=== PATIENT | female | born 1965 | race Caucasian/White ===

== ENCOUNTER 2021-07-22 23:56 | Emergency (ER) | payer MEDICAID, OTHER ==
[~2021-07-22] VITALS: Ht 162.6 cm; Wt 56.7 kg
--- NOTE | 2021-07-23 00:09 | NUR ---
Dr. Bar at bedside for MSE.
[2021-07-23] MEDS ORDERED: BACITRACIN ZINC OINT 15 GM TUBE TOP ONE (00:15)
[2021-07-23] MEDS ORDERED: LIDOCAINE HCL 1% 20 ML VIAL TP ONE (00:15)
[2021-07-23] MEDS ORDERED: ACETAMINOPHEN 325 MG TABLET PO ONE (00:15)
[2021-07-23] MEDS ORDERED: ACETAMINOPHEN 325 MG TABLET ONE (00:20)
[2021-07-23] MEDS ORDERED: BACITRACIN ZINC OINT 15 GM TUBE ONE (00:21)
[2021-07-23] MEDS ORDERED: LIDOCAINE HCL 1% 20 ML VIAL ONE (00:21)
[2021-07-23 00:36] VITALS: BP 129/85
--- NOTE | 2021-07-23 00:36 | NUR ---
Patient discharged to home in stable condition. Written and verbal after care instructions given. Patient verbalizes understanding of instructions. Stressed follow up or return to ER for worsening s/s. Patient out of ER with steady gait, no acute signs of distress, VSS, all belongings taken.
== END 2021-07-23 00:37 | disposition home or self-care (01) ==
LOC: ER 07-23 00:03
DX: S01.81XA Laceration without foreign body of other part of head, initial encounter (principal); W01.0XXA Fall on same level from slipping, tripping and stumbling without subsequent striking against object, initial encounter; Y93.K1 Activity, walking an animal; Y92.89 Other specified places as the place of occurrence of the external cause
CPT/HCPCS: 12011; 99282; J3490; A4217; A4663

== ENCOUNTER 2021-08-18 10:15 | Emergency (ER) | payer MEDICAID ==
[~2021-08-18] VITALS: Ht 175.3 cm; Wt 56.7 kg
--- NOTE | 2021-08-18 10:34 | NUR ---
at bedside for assessment
--- NOTE | 2021-08-18 11:30 | NUR ---
Patient discharged to home in stable condition. Patient instructed to follow up. Written and verbal after care instructions given. Patient verbalizes understanding of instructions. Stressed follow up or return to ER for worsening s/s.
--- NOTE | 2021-08-18 11:45 | NUR ---
short ulner splint applied to left arm
[2021-08-18 12:06] VITALS: BP 120/66
== END 2021-08-18 11:30 | disposition home or self-care (01) ==
LOC: ER 10:15
DX: S62.615A Displaced fracture of proximal phalanx of left ring finger, initial encounter for closed fracture (principal); W01.0XXA Fall on same level from slipping, tripping and stumbling without subsequent striking against object, initial encounter; Y93.K1 Activity, walking an animal; Y92.89 Other specified places as the place of occurrence of the external cause
CPT/HCPCS: 73130; A4663

== ENCOUNTER 2021-10-29 19:35 | Emergency (ER) | payer MEDICAID ==
--- NOTE | 2021-10-29 21:58 | NUR ---
Patient left without being seen.
== END 2021-10-29 21:59 | disposition left against medical advice (07) ==
LOC: ER 19:35
DX: Z53.21 Procedure and treatment not carried out due to patient leaving prior to being seen by health care provider (principal)